=== PATIENT | female | born 1940 | race Caucasian/White ===

== ENCOUNTER → 2017-02-05 | Outpatient (CLI) | payer MEDICARE ==
[~2017-02-05] MED LIST: ECOT81TA2 PO; OMEGCAP21 PO; VESI10TA4 PO; [UNRECOGNIZED DRUG - CODE] PO
[2017-02-05 14:01] LABS: ANION GAP 8 MEQ/L (5-15); AST (GOT) 13 U/L (15-37); BICARBONATE 26.1 MEQ/L (21.0-32.0); BLOOD UREA NITROGEN 13 MG/DL (7-18); CHLORIDE 107 MEQ/L (98-107); GLOMERULAR FILTRATION RATE 76 ML/MIN (>89); GLUCOSE,FASTING 98 MG/DL (74-99); SODIUM (NA) 141 MEQ/L (136-145)
[2017-02-05 14:06] LABS: ALKALINE PHOSPHATASE 63 U/L (45-117); ALT (GPT) 19 U/L (10-53); HDL CHOLESTEROL 95.3 MG/DL (40.0-60.0); LDL CHOLESTEROL 70 MG/DL (0-99); TOTAL BILIRUBIN ADULT 0.6 MG/DL (0.2-1.0)
[2017-02-05 17:02] LABS: HEMOGLOBIN A1a 1.3 %; HEMOGLOBIN A1b 1.4 %; HEMOGLOBIN Ao 85.5 %; HEMOGLOBIN P3 3.7 %
== END ==
LOC: PLAB 10:56
PROVIDERS: ATTEND Family Medicine
DX: E11.9 Type 2 diabetes mellitus without complications (principal); I73.89 Other specified peripheral vascular diseases; I35.0 Nonrheumatic aortic (valve) stenosis
CPT/HCPCS: 36415; 80053; 80061; 83036

== ENCOUNTER → 2017-02-14 | Outpatient (CLI) | payer MEDICARE | LOC: PLAB 11:44 | PROVIDERS: ATTEND Family Medicine | DX: R19.7 Diarrhea, unspecified (principal) ==

== ENCOUNTER → 2017-02-25 | Outpatient (CLI) | payer MEDICARE ==
[2017-02-25 15:38] LABS: AUTOMATED NEUTROPHIL # 2.3 TH/MM3 (1.8-7.7); BASOPHIL # 0.1 TH/MM3 (0-0.2); BASOPHIL % 1.4 % (0.0-2.0); EOSINOPHIL # 1.4 TH/MM3 (0-0.4); EOSINOPHIL % 18.7 % (0.0-4.0); HEMATOCRIT 29.8 % (35.0-46.0); HEMO FLAGS DIFF FINAL; LYMPH % 43.3 % (9.0-44.0); LYMPHOCYTE # 3.3 TH/MM3 (1.0-4.8); MEAN CELL VOLUME 102.3 FL (80.0-100.0); MEAN CORPUSCULAR HEMOGLOBIN 35.2 PG (27.0-34.0); MEAN CORPUSCULAR HGB CONC 34.4 % (32.0-36.0); MONO % 6.2 % (0.0-8.0); NEUT % 30.4 % (16.0-70.0); PLATELET COUNT 379 TH/MM3 (150-450); RED BLOOD COUNT 2.91 MIL/MM3 (4.00-5.30); RED CELL DISTRIBUTION WIDTH 14.1 % (11.6-17.2); WHITE BLOOD COUNT 7.6 TH/MM3 (4.0-11.0)
== END ==
LOC: PLAB 13:55
DX: J32.9 Chronic sinusitis, unspecified (principal)
CPT/HCPCS: 36415; 85025

== ENCOUNTER → 2017-03-19 | Outpatient (CLI) | payer MEDICARE | LOC: PLAB 15:38 | PROVIDERS: ATTEND Family Medicine | DX: D53.9 Nutritional anemia, unspecified (principal) | CPT/HCPCS: 36415; 82607; 82746; 83090; 83921 ==

== ENCOUNTER 2017-05-02 06:35 | Day surgery (SDC) | payer MEDICARE ==
[2017-05-02] MEDS: CHLORHEXIDINE GLUCONATE 2 % 1 PACK (2 CLOTHS) TOPICAL SCH ×2 (07:45→09:33)
[2017-05-02] MEDS ORDERED: ceFAZolin 2 GM PREMIX 50 ML IV SCH (08:00)
[2017-05-02] MEDS ORDERED: POVIDONE IODINE 5% (ANTISEPSIS KIT) 4 APPLICATIONS EACH NARE SCH (08:00)
[2017-05-02] MEDS ORDERED: MUPIROCIN 2% OINT 1 APPLIC/GM SYR NASAL SCH (08:00)
--- NOTE | 2017-05-02 08:43 | MA ---
cc: BLAYNE ROBERTSON MD DATE: 05/02/2017 PROCEDURE Loop recorder insertion. PERFORMING PHYSICIAN Dr. Blayne Robertson. PREPROCEDURE DIAGNOSIS Atrial fibrillation of uncertain significance. POSTPROCEDURE DIAGNOSIS Successful loop recorder insertion. DESCRIPTION OF PROCEDURE After informed consent was obtained, the patient was brought to the DOC unit in the postabsorptive state. A [employer] LINQ loop recorder was then inserted subcutaneously in the left chest. The patient tolerated the procedure well without any apparent complication. Tachybrady pause and atrial fibrillation detection was enabled. The initial R-wave was 0.42 mV. The serial number was [id number]. Blayne Robertson MD KENIA/BT /8:23 AM /8:30 AM
== END 2017-05-02 09:28 | disposition home or self-care (01) ==
LOC: HDOC 06:35 → HDIC 06:37 → HDOC 09:28
PROVIDERS: ATTEND Nuclear Medicine Nuclear Cardiology
DX: I48.0 Paroxysmal atrial fibrillation (principal); I35.0 Nonrheumatic aortic (valve) stenosis; I25.10 Atherosclerotic heart disease of native coronary artery without angina pectoris; I47.1 Supraventricular tachycardia; I73.9 Peripheral vascular disease, unspecified
CPT/HCPCS: 33282; 99152; C1764; J0690

== ENCOUNTER → 2017-09-03 | Outpatient (CLI) | payer MEDICARE ==
[2017-09-03 13:06] LABS: AUTOMATED NEUTROPHIL # 3.8 TH/MM3 (1.8-7.7); BASOPHIL # 0.1 TH/MM3 (0-0.2); BASOPHIL % 0.7 % (0.0-2.0); EOSINOPHIL # 0.3 TH/MM3 (0-0.4); EOSINOPHIL % 2.2 % (0.0-4.0); HEMATOCRIT 32.6 % (35.0-46.0); HEMOGLOBIN 11.1 GM/DL (11.6-15.3); LYMPH % 57.6 % (9.0-44.0); LYMPHOCYTE # 6.8 TH/MM3 (1.0-4.8); MEAN CORPUSCULAR HEMOGLOBIN 35.6 PG (27.0-34.0); MEAN CORPUSCULAR HGB CONC 34.2 % (32.0-36.0); MEAN PLATELET VOLUME 9.7 FL (7.0-11.0); MONO % 7.4 % (0.0-8.0); MONOCYTE # 0.9 TH/MM3 (0-0.9); NEUT % 32.1 % (16.0-70.0); PLATELET COUNT 840 TH/MM3 (150-450); RED BLOOD COUNT 3.13 MIL/MM3 (4.00-5.30); RED CELL DISTRIBUTION WIDTH 15.3 % (11.6-17.2); WHITE BLOOD COUNT 11.9 TH/MM3 (4.0-11.0)
[2017-09-03 13:33] LABS: ALBUMIN 3.7 GM/DL (3.4-5.0); ALT (GPT) 26 U/L (10-53); AST (GOT) 14 U/L (15-37); BICARBONATE 28.4 MEQ/L (21.0-32.0); BLOOD UREA NITROGEN 18 MG/DL (7-18); CHLORIDE 100 MEQ/L (98-107); CHOLESTEROL 182 MG/DL (120-200); CREATININE 0.97 MG/DL (0.50-1.00); GLOMERULAR FILTRATION RATE 56 ML/MIN (>89); GLUCOSE,FASTING 96 MG/DL (74-99); SODIUM (NA) 138 MEQ/L (136-145); TRIGLYCERIDES 172 MG/DL (42-150)
[2017-09-03 13:34] LABS: HEMOGLOBIN A1C 5.5 % (4.3-6.0)
[2017-09-03 13:35] LABS: ALKALINE PHOSPHATASE 51 U/L (45-117); CHOLESTEROL/ HDL RATIO 2.01 RATIO; HDL CHOLESTEROL 90.5 MG/DL (40.0-60.0); LDL CHOLESTEROL 57 MG/DL (0-99); TOTAL BILIRUBIN ADULT 0.6 MG/DL (0.2-1.0); TOTAL PROTEIN 7.4 GM/DL (6.4-8.2)
[2017-09-03 13:54] LABS: BANDS 5 % (0-6); BASOPHILS 1 % (0-2); CORRECTED NUCLEATED RBC 1 /100 WBC (0-0); MONOCYTES 3 % (0-8); NEUTROPHIL # MANUAL DIFF 4.6 TH/MM3 (1.8-7.7); NUCLEATED RED BLOOD CELL 1 (0-0); POLYS (SEG NEUTROPHILS) 34 % (16-70)
[2017-09-03 13:56] LABS: LYMPHOCYTES 52 % (9-44); OVALOCYTES 1+ (NORMAL)
== END ==
LOC: PLAB 09:24
PROVIDERS: ATTEND Family Medicine
DX: R53.83 Other fatigue (principal); D53.9 Nutritional anemia, unspecified; R63.4 Abnormal weight loss; R01.1 Cardiac murmur, unspecified; I83.10 Varicose veins of unspecified lower extremity with inflammation; R91.1 Solitary pulmonary nodule; E11.9 Type 2 diabetes mellitus without complications; E78.2 Mixed hyperlipidemia; Z72.0 Tobacco use
CPT/HCPCS: 36415; 80053; 80061; 83036; 85007; 85027

== ENCOUNTER → 2017-09-17 | Outpatient (CLI) | payer MEDICARE ==
[2017-09-17 17:08] LABS: AUTOMATED NEUTROPHIL # 1.7 TH/MM3 (1.8-7.7); BASOPHIL # 0.1 TH/MM3 (0-0.2); BASOPHIL % 1.1 % (0.0-2.0); EOSINOPHIL # 0.5 TH/MM3 (0-0.4); EOSINOPHIL % 7.4 % (0.0-4.0); HEMATOCRIT 24.3 % (35.0-46.0); HEMOGLOBIN 8.5 GM/DL (11.6-15.3); LYMPH % 58.2 % (9.0-44.0); LYMPHOCYTE # 3.6 TH/MM3 (1.0-4.8); MEAN CELL VOLUME 105.5 FL (80.0-100.0); MEAN CORPUSCULAR HGB CONC 35.1 % (32.0-36.0); MEAN PLATELET VOLUME 10.2 FL (7.0-11.0); MONO % 5.7 % (0.0-8.0); MONOCYTE # 0.4 TH/MM3 (0-0.9); NEUT % 27.6 % (16.0-70.0); PLATELET COUNT 268 TH/MM3 (150-450); RED BLOOD COUNT 2.31 MIL/MM3 (4.00-5.30); RED CELL DISTRIBUTION WIDTH 16.8 % (11.6-17.2); WHITE BLOOD COUNT 6.2 TH/MM3 (4.0-11.0)
== END ==
LOC: PLAB 15:45
PROVIDERS: ATTEND Family Medicine
DX: D47.3 Essential (hemorrhagic) thrombocythemia (principal)
CPT/HCPCS: 36415; 85025

== ENCOUNTER → 2017-09-25 | Outpatient (CLI) | payer MEDICARE ==
[2017-09-25 17:33] LABS: AUTOMATED NEUTROPHIL # 1.7 TH/MM3 (1.8-7.7); BASOPHIL % 0.8 % (0.0-2.0); EOSINOPHIL # 0.4 TH/MM3 (0-0.4); EOSINOPHIL % 6.7 % (0.0-4.0); HEMATOCRIT 25.4 % (35.0-46.0); HEMOGLOBIN 8.7 GM/DL (11.6-15.3); LYMPH % 55.2 % (9.0-44.0); MEAN CELL VOLUME 107.1 FL (80.0-100.0); MEAN CORPUSCULAR HEMOGLOBIN 36.8 PG (27.0-34.0); MEAN CORPUSCULAR HGB CONC 34.4 % (32.0-36.0); MEAN PLATELET VOLUME 10.4 FL (7.0-11.0); MONO % 6.9 % (0.0-8.0); MONOCYTE # 0.4 TH/MM3 (0-0.9); NEUT % 30.4 % (16.0-70.0); PLATELET COUNT 314 TH/MM3 (150-450); RED BLOOD COUNT 2.37 MIL/MM3 (4.00-5.30); RED CELL DISTRIBUTION WIDTH 17.8 % (11.6-17.2); WHITE BLOOD COUNT 5.5 TH/MM3 (4.0-11.0)
== END ==
LOC: PLAB 13:36
PROVIDERS: ATTEND Family Medicine
DX: D47.3 Essential (hemorrhagic) thrombocythemia (principal); D53.9 Nutritional anemia, unspecified
CPT/HCPCS: 36415; 85025